=== PATIENT | male | born 1960 | race Native Hawaiian/Other Pacific Islander ===

== ENCOUNTER 2016-11-07 16:14 | Outpatient (CLI) | payer BC | END 2016-11-07 19:51 | disposition home or self-care (01) | LOC: CT 16:14 | DX: J01.01 Acute recurrent maxillary sinusitis (principal) ==

== ENCOUNTER 2017-09-26 09:07 | Outpatient (CLI) | payer BC ==
[2017-09-26 11:24] LABS: PLATELET COUNT 276 K/uL (142-355)
[2017-09-26 11:28] LABS: POTASSIUM 4.5 mmol/L (3.6-5.2)
== END 2017-09-26 19:21 | disposition home or self-care (01) ==
LOC: LABW 09:07
PROVIDERS: Internal Medicine Cardiovascular Disease
DX: R94.39 Abnormal result of other cardiovascular function study (principal); R00.0 Tachycardia, unspecified; E78.4 Other hyperlipidemia; I10 Essential (primary) hypertension; G47.33 Obstructive sleep apnea (adult) (pediatric)
CPT/HCPCS: 80053; 80061; 82248; 85027

== ENCOUNTER 2020-02-29 13:28 | Outpatient (CLI) | payer BC | END 2020-02-29 19:16 | disposition home or self-care (01) | LOC: RAD 13:28 | DX: M25.511 Pain in right shoulder (principal) ==

== ENCOUNTER 2020-03-16 14:44 | Outpatient (CLI) | payer BC | END 2020-03-16 20:14 | disposition home or self-care (01) | LOC: MRI 14:44 | DX: M25.511 Pain in right shoulder (principal) ==

== ENCOUNTER 2021-08-22 13:52 | Outpatient (CLI) | payer BC | END 2021-08-22 19:41 | disposition home or self-care (01) | LOC: MRI 13:52 | PROVIDERS: ATTEND Orthopaedic Surgery Orthopaedic Surgery of the Spine | DX: M54.50 Low back pain, unspecified (principal) ==